=== PATIENT | female | born 1970 ===

== ENCOUNTER 2020-03-24 11:44 | Outpatient (CLI) | payer OTHER | END 2020-03-24 12:05 | disposition home or self-care (01) | LOC: MAMO-SONO 11:44 | PROVIDERS: ATTEND Obstetrics & Gynecology | DX: Z12.31 Encounter for screening mammogram for malignant neoplasm of breast (principal); N60.11 Diffuse cystic mastopathy of right breast; N60.12 Diffuse cystic mastopathy of left breast ==

== ENCOUNTER 2021-06-15 12:56 | Outpatient (CLI) | payer OTHER | END 2021-06-15 12:57 | disposition home or self-care (01) | LOC: MAMO-SONO 12:56 | PROVIDERS: ATTEND General Practice | DX: Z12.31 Encounter for screening mammogram for malignant neoplasm of breast (principal); N62 Hypertrophy of breast ==

== ENCOUNTER 2021-07-10 14:14 | Outpatient (CLI) | payer OTHER | END 2021-07-10 14:26 | disposition home or self-care (01) | LOC: SONOGRAMA 14:14 | PROVIDERS: ATTEND General Practice | DX: Z12.31 Encounter for screening mammogram for malignant neoplasm of breast (principal); N62 Hypertrophy of breast ==

== ENCOUNTER 2023-08-17 13:24 | Outpatient (CLI) | payer OTHER | END 2023-08-17 13:35 | disposition home or self-care (01) | LOC: MAMO-SONO 13:24 | DX: N62 Hypertrophy of breast (principal); Z12.31 Encounter for screening mammogram for malignant neoplasm of breast ==

== ENCOUNTER → 2023-11-10 13:12 | Outpatient (CLI) | payer OTHER | END | disposition home or self-care (01) | LOC: NUCLEAR 13:12 | PROVIDERS: ATTEND Obstetrics & Gynecology | DX: M81.0 Age-related osteoporosis without current pathological fracture (principal) ==

== ENCOUNTER 2024-12-11 13:29 | Outpatient (CLI) | payer OTHER | END 2024-12-11 13:35 | disposition home or self-care (01) | LOC: MAMO-SONO 13:29 | DX: N62 Hypertrophy of breast (principal); Z12.31 Encounter for screening mammogram for malignant neoplasm of breast; N95.1 Menopausal and female climacteric states ==